=== PATIENT | female | born 1995 | race Caucasian/White ===

== ENCOUNTER 2016-05-12 05:40 | Emergency (ER) | payer OTHER ==
[2016-05-12] MEDS ORDERED: Ondansetron INJ* 2 MG/ML VIAL ONE (06:01)
[2016-05-12] MEDS ORDERED: NS 0.9% 1000 ML* 1,000 ML IV ONE (06:17)
--- NOTE | 2016-05-12 06:32 | ED ---
GI/ HPI - HPI Summary HPI Summary: pt with nausea, vomit, diarrhea for sevwereal hours - History of Current Complaint Chief Complaint: EDNauseaVomitDiarrh Time Seen by Provider: 05/12/16 06:04 Stated Complaint: ABD PAIN Hx Obtained From: Patient Onset/Duration: Started Hours Ago Timing: Intermittent Severity: Mild Current Severity: Mild Pain Intensity: 7 - Allergy/Home Medications Allergies/Adverse Reactions: Allergies Allergy/AdvReac Type Severity Reaction Status Date / Time No Known Allergies Allergy Verified 05/12/16 05:46 Home Medications: Home Medications NK [No Home Medications Reported] 05/12/16 [History Confirmed 05/12/16] PMH/Surg Hx/FS Hx/Imm Hx Previously Healthy: Yes - Immunization History Date of Tetanus Vaccine: utd Date of Influenza Vaccine: none Infectious Disease History: No Infectious Disease History: Denies: Traveled Outside the [place] in Last 30 Days - Social History Alcohol Use: Weekly Alcohol Amount: 2 beers Substance Use Type: Reports: None Smoking Status (MU): Never Smoked Tobacco Review of Systems Positive: Abdominal Pain, Vomiting, Diarrhea, Nausea All Other Systems Reviewed And Are Negative: Yes Physical Exam Triage Information Reviewed: Yes Vital Signs On Initial Exam: Initial Vitals Temp Pulse Resp BP Pulse Ox 98.5 F 93 16 117/53 100 05/12/16 05:41 05/12/16 05:41 05/12/16 05:41 05/12/16 05:41 05/12/16 05:41 Vital Signs Reviewed: Yes Appearance: Positive: Well-Appearing, No Pain Distress Skin: Positive: Warm Head/Face: Positive: Normal Head/Face Inspection Eyes: Positive: LUKASZ ENT: Positive: Hearing grossly normal Neck: Positive: Supple Respiratory/Lung Sounds: Positive: Clear to Auscultation, Breath Sounds Present Cardiovascular: Positive: Normal Abdomen Description: Positive: Nontender, Soft Bowel Sounds: Positive: Present Musculoskeletal: Positive: Strength/ROM Intact Neurological: Positive: Sensory/Motor Intact Psychiatric: Positive: Normal - [place] Coma Scale Coma Scale Total: 15 Diagnostics - Vital Signs Vital Signs Temp Pulse Resp BP Pulse Ox 05/12/16 05:41 98.5 F 93 16 117/53 100 - Laboratory Result Diagrams: 05/12/16 05:55 Lab Statement: Any lab studies that have been ordered have been reviewed, and results considered in the medical decision making process. Re-Evaluation - Re-Evaluation First Eval Re-Evaluation Time: 06:40 Change: Improved GIGU Course/Dx - Diagnoses Provider Diagnoses: Gastroenteritis Discharge - Discharge Plan Condition: Improved Disposition: HOME Patient Education Materials: Gastroenteritis (ED), Acute Nausea and Vomiting ( ED)
[2016-05-12 06:40] LABS: Hematocrit 48 % (35-47); Hemoglobin 16.5 g/dl (12.0-16.0); Mean Corpuscular HGB Conc 34 g/dl (31-36); Mean Corpuscular Hemoglobin 31 pg (27-31); Mean Corpuscular Volume 90 fL (80-97); Mean Platelet Volume 8 um3 (7.4-10.4); Red Blood Count 5.36 10^6/ul (4.0-5.4); Red Cell Distribution Width 12 % (10.5-15); White Blood Count 10.6 10^3/ul (3.5-10.8)
[2016-05-12 06:51] LABS: Albumin 4.8 g/dL (3.2-5.2); BUN/Creatinine Ratio 13.1 (8-20); EGFR African American 83.2 (>60); EGFR Non-African American 64.7 (>60); Globulin 2.9 g/dL (2-4); Magnesium 1.5 mg/dL (1.9-2.7); Potassium 3.9 mmol/L (3.5-5.0); Total Bilirubin 1.2 mg/dL (0.2-1.0); Total Protein 7.7 g/dL (6.4-8.9)
[2016-05-12 10:48] VITALS: BP 119/69
== END 2016-05-12 10:46 | disposition home or self-care (01) ==
LOC: ED 05:40
DX: K52.9 Noninfective gastroenteritis and colitis, unspecified (principal); R11.2 Nausea with vomiting, unspecified; R19.7 Diarrhea, unspecified; R10.9 Unspecified abdominal pain
CPT/HCPCS: 36415; 80053; 83735; 85025; 96374; 99282; J2405